=== PATIENT | female | born 1940 | race Caucasian/White ===

== ENCOUNTER → 2016-12-24 | Outpatient (CLI) | payer MEDICARE, OTHER | LOC: RAD 11:48 | PROVIDERS: ATTEND Internal Medicine Medical Oncology | DX: R51 Headache (principal) | CPT/HCPCS: 70553; A9577 ==

== ENCOUNTER → 2017-02-27 | Outpatient (CLI) | payer MEDICARE, OTHER | LOC: RAD 09:19 | PROVIDERS: ATTEND Internal Medicine Medical Oncology | DX: R06.02 Shortness of breath (principal) | CPT/HCPCS: 78472; A9560; Q9969 ==

== ENCOUNTER → 2017-05-02 | Outpatient (CLI) | payer MEDICARE, OTHER ==
--- NOTE | 2017-05-05 09:02 | RADIOLOGY REPORT (SQ) ---
EXAM DESCRIPTION: PET CT SKULL/THIGH COMPLETED DATE/TIME: 05/02/2017 1:53 pm REASON FOR STUDY: BREAST CA C50.919 MALIGNANT NEOPLASM OF UNSP SITE OF UNSPECIFIED FEMAL COMPARISON: 09/29/2016, 04/28/2016, and 06/25/2015. RADIONUCLIDE AND DOSE: 12.0 mCi F18 FDG The route of agent administration: Intravenous FASTING BLOOD SUGAR: 90 mg/dl CONTRAST TYPE AND DOSE: No CT contrast given. TECHNIQUE: Blood glucose level was verified. Above dose of FDG was injected intravenously. 2-D seg mented attenuation correction images were obtained from the base of the skull to the midthighs. Nonc ontrast CT images were obtained for attenuation correction and fusion with emission images. CT image s were performed without oral or intravenous contrast and are not sensitive for parenchymal lesions. A series of overlapping emission PET images were obtained. Images reviewed and manipulated at [facility] work station by the radiologist. Images stored on PACS. LIMITATIONS: None. FINDINGS: HEAD AND NECK: Again seen is a hypermetabolic nodule in the posterior right lobe of the th yroid. Mean SUV value 6.99. No other areas of abnormal metabolic activity in the soft tissues of th e head and neck. CHEST: No areas of abnormal metabolic activity in the chest. ABDOMEN AND PELVIS: No areas of abnormal metabolic activity in the abdomen or pelvis. Expected physi ologic activity is present in the genitourinary system and bowel. PROXIMAL LOWER EXTREMITIES: No areas of abnormal metabolic activity in the soft tissues of the lower extremities. BONES: Activity in the left maxilla (mean SUV value 4.11) and left mandible (mean SUV 3.85). These a re probably related to dental disease. Lesion in the left 6 rib (mean SUV 2.97). Sclerotic lesion i n the T11 vertebra (mean SUV 4.18). Sclerotic lesion in the left acetabular region (mean SUV value 3 .28 and 4.36). ADDITIONAL CT FINDINGS: Calcified hilar and subcarinal lymph nodes. Hiatal hernia. Calcified granul omas in the spleen. Surgical changes in the liver. Colonic diverticulosis. OTHER: No other significant findings. IMPRESSION: 1. BONY LESIONS DESCRIBED, ESSENTIALLY UNCHANGED COMPARED TO APRIL 2016. NO NEW LESIONS. 2. HYPERMETABOLIC NODULE IN THE RIGHT LOBE OF THE THYROID, UNCHANGED. 3. NO OTHER ABNORMAL SOFT TISSUE FINDINGS ON PET IMAGING. STABLE CT FINDINGS. TECHNICAL DOCUMENTATION: JOB ID: [id number] [employer]- All Rights Reserved
== END ==
LOC: RAD 08:50
PROVIDERS: ATTEND Internal Medicine Medical Oncology
DX: C83.39 Diffuse large B-cell lymphoma, extranodal and solid organ sites (principal); C50.919 Malignant neoplasm of unspecified site of unspecified female breast
CPT/HCPCS: 78815; A9552

== ENCOUNTER → 2017-05-07 | Outpatient (CLI) | payer MEDICARE, OTHER ==
--- NOTE | 2017-05-07 15:18 | RADIOLOGY REPORT (SQ) ---
EXAM DESCRIPTION: NM MUGA REST COMPLETED DATE/TIME: 05/07/2017 2:18 pm REASON FOR STUDY: CARDIOMYOPATHY DUE TO DRUG AND EXTERNAL AGENT;DETENTION USE I42.7 CARDIOMYOPATHY DUE TO DRUG AND EXTERNAL AGENT COMPARISON: 02/27/2017 RADIONUCLIDE AND DOSE: 26.8 mCi Tc 99m tagged red blood cells The route of agent administration: Intravenous TECHNIQUE: Following administration of the radionuclide, gated images of the heart are obtained in t hree projections. Left ventricular functional analysis performed. LIMITATIONS: None. FINDINGS: LEFT VENTRICULAR FUNCTION: EJECTION FRACTION: 68%. END-DIASTOLIC VOLUME: 55 mL. END-SYSTOLIC VOLUME: 13 mL. WALL MOTION: No focal wall motion abnormalities. OTHER: No other significant finding. IMPRESSION: NORMAL CARDIAC MUGA STUDY. NORMAL LEFT VENTRICULAR FUNCTION WITH VALUES ABOVE. TECHNICAL DOCUMENTATION: JOB ID: [id number] [employer]- All Rights Reserved
== END ==
LOC: RAD 10:50
PROVIDERS: ATTEND Internal Medicine Medical Oncology
DX: I42.7 Cardiomyopathy due to drug and external agent (principal)
CPT/HCPCS: 78472; A9560; Q9969

== ENCOUNTER 2017-07-04 08:23 | Day surgery (SDC) | payer MEDICARE, OTHER ==
--- NOTE | 2017-07-01 12:35 | HISTORY AND PHYSICAL E ---
History and Physical NAME: MIN MCFARLAND : 1940 AGE: 76Y ADMITTED: 07/04/2017 ROOM: CHIEF COMPLAINT: Patient presented for colon screening. HISTORY OF PRESENT ILLNESS: Patient was seen by Deyanira Almeida Dr. regarding esophageal hernia with dysphagia, odynophagia. They recommended surgical repair. The patient has cholecystectomy, hysterectomy, heart disease status post angioplasty. The patient presented for old colonoscopy. SURGICAL HISTORY: She does have: 1. Appendicitis, appendectomy at 55. 2. Cholecystectomy. ALLERGIES: No known allergies. MEDICATIONS: Crestor. SOCIAL HISTORY: Retired. She is nonsmoker. She does not drink. FAMILY HISTORY: Mom passed at the age of 83. She had an MT. REVIEW OF SYSTEMS: Dysphagia, abdominal pain, reflux, bloating, diarrhea, hemorrhoid, chest pain. At this time patient for colonoscopy. The patient was seen by Dr. Nils Humphreys. She underwent uneventful laparoscopy, hiatus hernia repair with Francisco Javier fundoplication. The patient did have paraesophageal hernia, as mentioned, underwent surgery. She did have colonoscopy 2006 showing nonspecific colitis and sigmoid diverticulosis. The patient did have colonoscopy 2006 shows as follows: Hemorrhoids, few erosions, erythema rectosigmoid, descending colon diverticulosis. Biopsy came back negative except acute inflammation. PAST MEDICAL HISTORY: 1. History of high cholesterol. 2. Hypertension. PHYSICAL EXAMINATION: VITAL SIGNS: Blood pressure 120/70, pulse 80, respirations 18, temp is 98. HEENT: Normal. ABDOMEN: Soft. NEUROLOGIC: Negative. MEDICATIONS: 1. Ambien. 2. Oxycodone. 3. Trental. 4. . CONCLUSION: Constipation, hemorrhoids, lower abdominal pain. PLAN: Colonoscopy. DICTATING PHYSICIAN: EUSEBIA DON M.D. [id number] PHY#: [id number] ID: [id number] JOB#: [id number] ACCT: [id number] cc:EUSEBIA DON M.D. >
[~2017-07-04 08:23] MED LIST: EPINEPHRINE INJ 1 MG/10 ML DISP.SYRIN ONE; FENTANYL CITRATE INJ/PF 100 MCG/2 ML AMPUL ONE; FLUMAZENIL INJ 0.5 MG/5 ML VIAL IV ONE; GLUCAGON,HUMAN RECOMB 1 MG INJ ONE; GLYCOPYRROLATE INJ 0.4 MG/2 ML VIAL ONE; LIDOCAINE 2% JELLY 30 ML TUBE ONE; NALOXONE HCL INJ/PF 0.4 MG/1 ML SDV ONE; ONDANSETRON HCL INJ/PF 4 MG/2 ML SDV ONE
[2017-07-04] MEDS: MIDAZOLAM 2 MG/2 ML INJ ONE ×2 (09:22→09:28)
[2017-07-04 10:45] LABS: ABSOLUTE EOSINOPHILS # (AUTO) 0.1 10^3/uL (0.0-0.6); ABSOLUTE LYMPHOCYTES (AUTO) 0.9 10^3/uL (0.5-4.7); ABSOLUTE MONOCYTES (AUTO) 0.5 10^3/uL (0.1-1.4); ABSOLUTE NEUT (AUTO) 5.5 10^3/uL (1.7-8.2); BASOPHILS % (AUTO) 0.4 % (0-2); EOSINOPHILS % (AUTO) 1.4 % (0-6); HEMATOCRIT 36.4 % (36.0-47.0); HEMOGLOBIN 12.1 g/dL (12.0-15.5); HGB HCT DIFFERENCE -0.1; LYMPHOCYTES % (AUTO) 12.4 % (13-45); MEAN CORPUSCULAR HEMOGLOBIN 29.5 pg (27.0-33.4); MEAN CORPUSCULAR HGB CONC 33.1 g/dL (32.0-36.0); MEAN CORPUSCULAR VOLUME 89 fl (80-97); RED BLOOD COUNT 4.09 10^6/uL (3.72-5.28); RED CELL DISTRIBUTION WIDTH 15.8 % (11.5-14.0); SEGMENTED NEUTROPHILS % (AUTO) 78.8 % (42-78)
[2017-07-04 10:50] VITALS: BP 152/63
[2017-07-04 11:35] LABS: ERYTHROCYTE SEDIMENTATION RATE 40 mm/hr (0-30)
--- NOTE | 2017-07-04 12:58 | DISCHARGE SUMMARY E ---
Discharge Summary NAME: MIN MCFARLAND : 1940 AGE: 76Y ADMITTED: 07/04/2017 DISCHARGED: 07/04/2017 PROCEDURE: Colonoscopy. HOSPITAL COURSE: The patient is 76, underwent colon screening today that shows no evidence of polyps, no bleeding. Sigmoid descending colon diverticulosis. She does have a history of breast cancer, history of asthma, coronary artery bypass 5 years ago, hysterectomy, appendectomy, colectomy, paraesophageal hernia repair. DISCHARGE PLAN: Baseline CBC. Soft, low-residue diet for 5 days. Hold aspirin, nonsteroidal 5 days. DICTATING PHYSICIAN: EUSEBIA DON M.D. [id number] PHY#: [id number] ID: [id number] JOB#: [id number] ACCT: [id number] cc:EUSEBIA DON M.D. >
--- NOTE | 2017-07-04 13:05 | OPERATIVE REPORT E ---
Operative Report NAME: MIN MCFARLAND : 1940 AGE: 76Y DATE OF SURGERY: 07/04/2017 ROOM: PREOPERATIVE DIAGNOSES: 1. Lower abdominal pain. 2. History of diverticulosis. 3. History of nonspecific colitis. 4. Preop colon screening. POSTOPERATIVE DIAGNOSES: Sigmoid descending colon diverticulosis. Nonspecific mild colitis in the sigmoid colon, most likely diverticulosis. No evidence of polyps. No bleeding. No malignancy. PROCEDURE: Colonoscopy to the cecum. Prep was adequate. SURGEON: EUSEBIA DON M.D. ANESTHESIA: Versed 2 and fentanyl 50. PROCEDURE: Rectal exam normal. Sigmoid diverticulosis, severe with nonspecific erosions in the sigmoid consistent with mild colitis. Descending colon diverticulosis. Transverse colon normal. Ascending colon normal. Cecum normal. Scope withdrawn cecum, ascending, transverse, descending, sigmoid, all the way to the rectum. CONCLUSION: Sigmoid descending colon diverticulosis, moderate to severe. No polyps. Mild colitis in the sigmoid colon. No bleeding. No malignancy. Patient tolerated the procedure well and discharged to her room in stable condition. PLAN: Consider followup colonoscopy 10 years if clinically indicated at that time. DICTATING PHYSICIAN: EUSEBIA DON M.D. [id number] [facility]#: [id number] ID: [id number] JOB#: [id number] ACCT: [id number] cc:PRO VERA M.D., MAHMOUD M.D. >
== END 2017-07-04 10:50 | disposition home or self-care (01) ==
LOC: END 08:23
PROVIDERS: ATTEND Specialist
PROC: 0DJD8ZZ Inspection of Lower Intestinal Tract, Via Natural or Artificial Opening Endoscopic (ICD-10-PCS; principal; 2017-07-04 09:00)
DX: K57.30 Diverticulosis of large intestine without perforation or abscess without bleeding (principal); K52.9 Noninfective gastroenteritis and colitis, unspecified; J45.909 Unspecified asthma, uncomplicated; I25.10 Atherosclerotic heart disease of native coronary artery without angina pectoris; E78.5 Hyperlipidemia, unspecified; I10 Essential (primary) hypertension; Z95.1 Presence of aortocoronary bypass graft; Z79.899 Other long term (current) drug therapy
CPT/HCPCS: 45378; 36415; 85025; 85652; 86140; J2250; J3010; J1610; J2405; J0171; J2310; J3490

== ENCOUNTER → 2017-10-06 | Outpatient (CLI) | payer MEDICARE, OTHER ==
--- NOTE | 2017-10-06 13:14 | RADIOLOGY REPORT (SQ) ---
EXAM DESCRIPTION: NM MUGA REST COMPLETED DATE/TIME: 10/06/2017 12:42 pm REASON FOR STUDY: CARDIOMYOPATHY DUE TO DRUG AND EXTERNAL AGENT (I42.7) I42.7 CARDIOMYOPATHY DUE TO DRUG AND EXTERNAL AGENT COMPARISON: 05/07/2017 RADIONUCLIDE AND DOSE: 25.3 mCi technetium 99 pertechnetate labeled red cells intravenous. The route of agent administration: Intravenous TECHNIQUE: Following administration of the radionuclide, gated images of the heart are obtained in t hree projections. Left ventricular functional analysis performed. LIMITATIONS: None. FINDINGS: LEFT VENTRICULAR FUNCTION: EJECTION FRACTION: 68%. WALL MOTION: No focal wall motion abnormalities. OTHER: No other significant finding. IMPRESSION: NORMAL CARDIAC MUGA. TECHNICAL DOCUMENTATION: JOB ID: [id number] [employer]- All Rights Reserved
== END ==
LOC: RAD 10:43
PROVIDERS: ATTEND Internal Medicine Medical Oncology
DX: I42.7 Cardiomyopathy due to drug and external agent (principal); T45.1X5A Adverse effect of antineoplastic and immunosuppressive drugs, initial encounter
CPT/HCPCS: 78472; A9560; Q9969

== ENCOUNTER → 2017-10-10 | Outpatient (CLI) | payer MEDICARE, OTHER ==
--- NOTE | 2017-10-10 16:04 | RADIOLOGY REPORT (SQ) ---
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 The route of agent administration: Intravenous. ADDITIONAL DRUGS AND DOSES: None. TECHNIQUE: Routine delayed images at 3 hours post radionuclide injection acquired of the bony skelet on including anterior and posterior whole-body projections and additional focused images as needed. LIMITATIONS: None. FINDINGS: BONES: There is increased uptake the proximal left 6th rib, right sternoclavicular joint, T12 vertebral body, the left acetabulum. There is mild increased uptake in the left sacroiliac joint . There is uptake left maxilla that was present previously. There is new uptake left occipital bone . KIDNEYS: Symmetric excretion without obstruction. OTHER: No other significant finding. IMPRESSION: There are stable areas of uptake as described above. There is new uptake in the occipit al bone on the left. COMMENT: Quality measure 147: Current bone scan is compared with any available plain radiographs, p rior bone scans, and CT/MRI. TECHNICAL DOCUMENTATION: JOB ID: [id number] [employer]- All Rights Reserved
== END ==
LOC: RAD 10:58
PROVIDERS: ATTEND Internal Medicine Medical Oncology
DX: C83.89 Other non-follicular lymphoma, extranodal and solid organ sites (principal); C50.919 Malignant neoplasm of unspecified site of unspecified female breast; C79.51 Secondary malignant neoplasm of bone
CPT/HCPCS: 78306; A9561; Q9969

== ENCOUNTER → 2017-10-19 | Outpatient (CLI) | payer MEDICARE, OTHER ==
--- NOTE | 2017-10-20 09:30 | RADIOLOGY REPORT (SQ) ---
EXAM DESCRIPTION: PET CT SKULL/THIGH COMPLETED DATE/TIME: 10/19/2017 7:11 pm REASON FOR STUDY: LYMPHOMA,BREAST CANCER, BONE CANCER C83.89 OTH NON-FOLLIC LYMPHOMA, EXTRANODAL AN D SOLID ORGAN S COMPARISON: PET-CT 05/02/2017, 09/29/2016, 07/21/2016, 10/13/2015, 06/25/2015 Bone scan 10/10/2017, 04/09/2016 RADIONUCLIDE AND DOSE: 11.5 mCi F18 FDG The route of agent administration: Intravenous FASTING BLOOD SUGAR: 75 mg/dl CONTRAST TYPE AND DOSE: No CT contrast given. TECHNIQUE: Blood glucose level was verified. Above dose of FDG was injected intravenously. 2-D seg mented attenuation correction images were obtained from the base of the skull to the midthighs. Nonc ontrast CT images were obtained for attenuation correction and fusion with emission images. CT image s were performed without oral or intravenous contrast and are not sensitive for parenchymal lesions. A series of overlapping emission PET images were obtained. Images reviewed and manipulated at [facility] work station by the radiologist. Images stored on PACS. LIMITATIONS: None. FINDINGS: HEAD AND NECK: In the posterior right lobe thyroid, a stable hypermetabolic nodule is pres ent with SUV 8.1. CHEST: No areas of abnormal metabolic activity in the chest. No hypermetabolic adenopathy or chest w all activity. ABDOMEN AND PELVIS: No areas of abnormal metabolic activity in the abdomen or pelvis. Expected physi ologic activity is present in the genitourinary system and bowel. PROXIMAL LOWER EXTREMITIES: No areas of abnormal metabolic activity in the soft tissues of the lower extremities. BONES: There is a new right T7 vertebral body subcentimeter hypermetabolic lesion with SUV 3.4. Other bony metastatic hypermetabolic lesions are as follows: Left posterior 6th rib SUV 3.3 (was SUV 3 on 05/02/2017). T11 vertebral body SUV 5 (was SUV 4.2 on 05/02/2017). Left acetabular posterior roof SUV 3.9 (was 3.3 on 05/02/2017). Left ischium/posterior acetabulum SUV 3.3 (was 4.4 on 05/02/2017). Increased activity is seen in the left maxilla and left mandible, likely related to periodontal disea se. Left maxilla activity SUV 6.4 (was 4.1 on PET-CT 05/02/2017). Left mandible activity SUV 4.2 (was 3.9 on PET-CT 05/02/2017). ADDITIONAL CT FINDINGS: Extensive atherosclerotic arterial vascular calcification, at the carotid bif urcations, origin of the left common carotid artery, coronary arteries, abdominal aorta. Post cholec ystectomy, appendectomy and left mastectomy. Calcified hilar and subcarinal lymph nodes. Moderate s ize hiatal hernia. Calcified granulomas in the spleen. Surgical clips posterior right lobe liver. Colonic diverticuli without CT signs of acute diverticulitis OTHER: Liver background SUV 2.3. Blood pool background 2.0 SUV IMPRESSION: New right T7 vertebral body subcentimeter hypermetabolic lesion Other bony metastatic lesions are stable in size, and similar in metabolic activity as compared to 05/02/2017 TECHNICAL DOCUMENTATION: JOB ID: [id number] [employer]- All Rights Reserved
== END ==
LOC: RAD 14:30
PROVIDERS: ATTEND Internal Medicine Medical Oncology
DX: C83.89 Other non-follicular lymphoma, extranodal and solid organ sites (principal); C50.919 Malignant neoplasm of unspecified site of unspecified female breast; C79.51 Secondary malignant neoplasm of bone
CPT/HCPCS: 78815; A9552

== ENCOUNTER → 2017-12-19 | Outpatient (CLI) | payer MEDICARE, OTHER ==
--- NOTE | 2017-12-20 09:43 | RADIOLOGY REPORT (SQ) ---
EXAM DESCRIPTION: MRI HEAD COMBO COMPLETED DATE/TIME: 12/19/2017 9:46 pm REASON FOR STUDY: HEADACHE R51 HEADACHE COMPARISON: 2014. TECHNIQUE: Multiplanar imaging includes noncontrasted T1, T2, FLAIR, diffusion with ADC map and post gadolinium contrast T1 sequences. Images stored on PACS. CONTRAST TYPE AND DOSE: 10 mL Multihance. RENAL FUNCTION: GFR > 60. LIMITATIONS: None. FINDINGS: ANATOMY: No anomalies. Normal vascular flow voids. Pituitary fossa normal. CSF SPACES: Small dural-based enhancing masses along the posterior falx to the right of midline and a long the right lateral temporal lobe. Suspect small meningiomas. In retrospect, these look stable a lthough better demonstrated on today's study with higher resolution post-contrast images. CEREBRUM: Spotty multifocal FLAIR white matter hyperintensities, grossly stable. Suggestive of small vessel vasculopathy, likely microvascular ischemic disease. No enhancing parenchymal lesions. POSTERIOR FOSSA: No signal alteration. No hemorrhage. No edema, masses, or mass effect. Internal sathish tory canals, cerebellopontine angles, mastoids normal. No enhancing lesions. No abnormal enhancement post contrast. DIFFUSION IMAGING: Negative for acute or subacute infarction. ORBITS: No masses. Globes normal. PARANASAL SINUSES: No fluid levels. Mucosa normal. OTHER: No other significant finding. IMPRESSION: 1. Stable examination includes small nonprogressive probable meningiomas as outlined abo ve. Also, patchy mild multifocal small vessel disease. No suspicious lesions. No acute abnormality . EVIDENCE OF ACUTE STROKE: NO. TECHNICAL DOCUMENTATION: JOB ID: [id number] [employer]- All Rights Reserved
== END ==
LOC: RAD 19:30
PROVIDERS: ATTEND Internal Medicine Medical Oncology
DX: R51 Headache (principal); I67.89 Other cerebrovascular disease
CPT/HCPCS: 82565; 70553; A9577

== ENCOUNTER → 2018-03-15 | Outpatient (CLI) | payer MEDICARE, OTHER ==
--- NOTE | 2018-03-16 09:13 | RADIOLOGY REPORT (SQ) ---
EXAM DESCRIPTION: PET CT SKULL/THIGH COMPLETED DATE/TIME: 03/15/2018 6:05 pm REASON FOR STUDY: LYMPHOMA C83.89 OTH NON-FOLLIC LYMPHOMA, EXTRANODAL AND SOLID ORGAN S COMPARISON: 10/19/2017 RADIONUCLIDE AND DOSE: 10.3 mCi F18 FDG The route of agent administration: Intravenous FASTING BLOOD SUGAR: 96 mg/dl CONTRAST TYPE AND DOSE: No CT contrast given. TECHNIQUE: Blood glucose level was verified. Above dose of FDG was injected intravenously. 2-D seg mented attenuation correction images were obtained from the base of the skull to the midthighs. Nonc ontrast CT images were obtained for attenuation correction and fusion with emission images. CT image s were performed without oral or intravenous contrast and are not sensitive for parenchymal lesions. A series of overlapping emission PET images were obtained. Images reviewed and manipulated at [facility] work station by the radiologist. Images stored on PACS. LIMITATIONS: None. FINDINGS: HEAD AND NECK: Stable hypermetabolic nodule posterior right lobe measuring about 5.6 SUV. CHEST: No areas of abnormal metabolic activity in the chest. ABDOMEN AND PELVIS: No areas of abnormal metabolic activity in the abdomen or pelvis. Expected physi ologic activity is present in the genitourinary system and bowel. PROXIMAL LOWER EXTREMITIES: No areas of abnormal metabolic activity in the soft tissues of the lower extremities. BONES: Hypermetabolic lesion left mandible SUV 4.2, stable. Hypermetabolic lesion left maxilla 6.2 S UV, stable. Both lesions are likely sequela of periodontal disease. Additional hypermetabolic bone lesions: T11 measuring 2.6 SUV, previously 5 SUV. Sclerotic lesion left ilium measures 2.4 SUV, previously 3.9. No other significant uptake. ADDITIONAL CT FINDINGS: No other significant acute findings. OTHER: No other significant findings. IMPRESSION: Favorable response to therapy with decreased uptake within bone lesions. No new areas o f hypermetabolic activity. TECHNICAL DOCUMENTATION: JOB ID: [id number]- All Rights Reserved Reading location - IP/workstation name: [email or web address]
== END ==
LOC: RAD 15:15
PROVIDERS: ATTEND Internal Medicine Medical Oncology
DX: C83.89 Other non-follicular lymphoma, extranodal and solid organ sites (principal)
CPT/HCPCS: 78815; A9552

== ENCOUNTER → 2018-05-24 | Outpatient (CLI) | payer MEDICARE, OTHER ==
--- NOTE | 2018-05-25 08:18 | RADIOLOGY REPORT (SQ) ---
EXAM DESCRIPTION: PET CT SKULL/THIGH COMPLETED DATE/TIME: 05/24/2018 5:48 pm REASON FOR STUDY: LYMPHOMA C83.89 OTH NON-FOLLIC LYMPHOMA, EXTRANODAL AND SOLID ORGAN S COMPARISON: PET-CT 03/15/2018, 10/19/2017 RADIONUCLIDE AND DOSE: 10 mCi F18 FDG The route of agent administration: Intravenous FASTING BLOOD SUGAR: 102 mg/dl CONTRAST TYPE AND DOSE: No CT contrast given. TECHNIQUE: Blood glucose level was verified. Above dose of FDG was injected intravenously. 2-D seg mented attenuation correction images were obtained from the base of the skull to the midthighs. Nonc ontrast CT images were obtained for attenuation correction and fusion with emission images. CT image s were performed without oral or intravenous contrast and are not sensitive for parenchymal lesions. A series of overlapping emission PET images were obtained. Images reviewed and manipulated at [facility] work station by the radiologist. Images stored on PACS. LIMITATIONS: None. FINDINGS: HEAD AND NECK: Nodule in the deep aspect right lower pole thyroid is unchanged, 1.5 cm in size with SUV of 6.3. This is similar compared to previous exams. CHEST: Interval development of patchy left basilar airspace disease worrisome for pneumonia with SUV 3.4. No pleural effusion. No worrisome pulmonary nodules. ABDOMEN AND PELVIS: No areas of abnormal metabolic activity in the abdomen or pelvis. Expected physi ologic activity is present in the genitourinary system and bowel. PROXIMAL LOWER EXTREMITIES: No areas of abnormal metabolic activity in the soft tissues of the lower extremities. BONES: Diffuse sclerotic metastatic lesions are present throughout the spine, without increased metab olic activity. Left mandible and maxilla activity is less prominent than on previous studies, likely related to dental disease ADDITIONAL CT FINDINGS: Right-sided permanent central line tip superior vena cava. Large retrocardia c hiatal hernia. Post cholecystectomy. Calcified mediastinal and right hilar lymph nodes, coronary artery calcifications, mild cardiomegaly OTHER: Liver background SUV 2.7. Blood pool background SUV 1.8 IMPRESSION: Treatment response with non metabolic sclerotic bony metastatic lesions. Patchy left basilar airspace disease with metabolic activity worrisome for pneumonia. TECHNICAL DOCUMENTATION: JOB ID: [id number] [employer]- All Rights Reserved Reading location - IP/workstation name: [facility]
== END ==
LOC: RAD 15:15
PROVIDERS: ATTEND Internal Medicine Medical Oncology
DX: C83.89 Other non-follicular lymphoma, extranodal and solid organ sites (principal)
CPT/HCPCS: 78815; A9552

== ENCOUNTER → 2018-07-29 | Outpatient (CLI) | payer MEDICARE, OTHER ==
--- NOTE | 2018-07-29 15:18 | RADIOLOGY REPORT (SQ) ---
EXAM DESCRIPTION: CHEST PA/LATERAL COMPLETED DATE/TIME: 07/29/2018 2:28 pm REASON FOR STUDY: MALIGNANT NEOPLASM OF UNSP SITE OF UNSPECIFIED FEMALE BREAST COMPARISON: 09/29/2015 EXAM PARAMETERS: NUMBER OF VIEWS: two views TECHNIQUE: Digital Frontal and Lateral radiographic views of the chest acquired. RADIATION DOSE: NA LIMITATIONS: none FINDINGS: LUNGS AND PLEURA: Lungs are hyperexpanded. There is no infiltrate or effusion. There is no mass. MEDIASTINUM AND HILAR STRUCTURES: No masses or contour abnormalities. HEART AND VASCULAR STRUCTURES: Cardiomegaly. No pulmonary edema. BONES: No acute findings. HARDWARE: Sternotomy wires. PICC line on the right. OTHER: No other significant finding. IMPRESSION: Chronic lung changes. Cardiomegaly without CHF. TECHNICAL DOCUMENTATION: JOB ID: [id number] [employer]- All Rights Reserved Reading location - IP/workstation name: [email or web address]
== END ==
LOC: OD 14:11
PROVIDERS: ATTEND Internal Medicine Medical Oncology
DX: C50.919 Malignant neoplasm of unspecified site of unspecified female breast (principal)
CPT/HCPCS: 71046

== ENCOUNTER → 2018-09-27 | Outpatient (CLI) | payer MEDICARE, OTHER ==
--- NOTE | 2018-09-28 08:44 | RADIOLOGY REPORT (SQ) ---
EXAM DESCRIPTION: PET CT SKULL/THIGH COMPLETED DATE/TIME: 09/27/2018 8:06 pm REASON FOR STUDY: LYMPHOMA C83.89 OTH NON-FOLLIC LYMPHOMA, EXTRANODAL AND SOLID ORGAN S COMPARISON: 05/24/2018, 03/15/2018, and 10/19/2017. RADIONUCLIDE AND DOSE: 10 mCi F18 FDG The route of agent administration: Intravenous FASTING BLOOD SUGAR: 106 mg/dl CONTRAST TYPE AND DOSE: No CT contrast given. TECHNIQUE: Blood glucose level was verified. Above dose of FDG was injected intravenously. 2-D seg mented attenuation correction images were obtained from the base of the skull to the midthighs. Nonc ontrast CT images were obtained for attenuation correction and fusion with emission images. CT image s were performed without oral or intravenous contrast and are not sensitive for parenchymal lesions. A series of overlapping emission PET images were obtained. Images reviewed and manipulated at [facility] work station by the radiologist. Images stored on PACS. LIMITATIONS: None. FINDINGS: HEAD AND NECK: Again seen is a focal nodule posterior to the right lobe of the thyroid, me asuring 1.5 cm, with mean SUV 7.41. Prior value 6.3. CHEST: Interval development of a moderate right pleural effusion. Calcified lymph nodes. Calcified pleural plaques. No areas of abnormal metabolic activity in the chest. ABDOMEN AND PELVIS: No areas of abnormal metabolic activity in the abdomen or pelvis. Expected physi ologic activity is present in the genitourinary system and bowel. PROXIMAL LOWER EXTREMITIES: No areas of abnormal metabolic activity in the soft tissues of the lower extremities. BONES: Multiple sclerotic bony lesions. A few of these now demonstrate interval slight increase in a ctivity. Focal activity in the right pedicle of T7 with mean SUV 3.42. Dense sclerosis in the T11 v ertebra with a small focal area of activity, mean SUV 5.42. Sclerotic lesion in the left iliac crest with mean SUV 2.79. Sclerotic lesion in the posterior left acetabulum with mean SUV 3.45. ADDITIONAL CT FINDINGS: No additional significant findings on the noncontrast CT images. OTHER: No other significant findings. Background blood pool activity mean SUV 1.97. Background live r activity mean SUV 2.67. IMPRESSION: 1. NUMEROUS SCLEROTIC BONY LESIONS. A FEW OF THESE NOW DEMONSTRATE INCREASING ACTIVITY, CONCERNING F OR RECURRING METASTATIC INVOLVEMENT. 2. FOCAL HYPERMETABOLIC NODULE POSTERIOR TO THE RIGHT LOBE OF THE THYROID, UNCHANGED. 3. INTERVAL DEVELOPMENT OF A MODERATE RIGHT PLEURAL EFFUSION. TECHNICAL DOCUMENTATION: JOB ID: [id number] [employer]- All Rights Reserved Reading location - IP/workstation name: [email or web address]
== END ==
LOC: RAD 15:23
PROVIDERS: ATTEND Internal Medicine Medical Oncology
DX: C83.89 Other non-follicular lymphoma, extranodal and solid organ sites (principal)
CPT/HCPCS: 78815; A9552

== ENCOUNTER 2018-10-09 13:50 | Emergency (ER) | payer MEDICARE, OTHER ==
--- NOTE | 2018-10-09 15:00 | ER Document Report ---
ED Medical Screen (RME) - General Chief Complaint: Rectal Bleeding Stated Complaint: ABDOMINAL PAIN, BLOOD IN STOOL Time Seen by Provider: 10/09/18 14:58 Notes: 78-year-old female to the emergency department for evaluation of GI bleeding. States that she has not felt well. Recently started Eliquis. Had 4 bowel movements that were bloody. History of breast cancer with history of atrial fibrillation and recent cardioversion. History of pleural effusions. I have greeted and performed a rapid initial assessment of this patient. A comprehensive ED assessment and evaluation of the patient, analysis of test results and completion of the medical decision making process will be conducted by additional ED providers. TRAVEL OUTSIDE OF THE [place] IN LAST 30 DAYS: No - Related Data Allergies/Adverse Reactions: oxycodone HCl [From Tylox] Allergy (Severe, Verified 10/09/18 13:52) Tachycardia codeine [Codeine] Adverse Reaction (Intermediate, Verified 10/09/18 13:52) Vomiting Past Medical History - Past Medical History Cardiac Medical History: Reports: Hx Atrial Fibrillation, Hx Coronary Artery Disease - TRIPLE BYPASS, Hx Hypercholesterolemia, Hx Hypertension - MEDICATED, Hx Heart Murmur Denies: Hx Congestive Heart Failure, Hx Heart Attack, Hx Peripheral Vascular Disease, Hx Pulmonary Embolism Pulmonary Medical History: Reports: Hx Asthma - ALLERGY RELATED,LAST USED INHALER 2 YEARS, Hx Bronchitis, Hx Pneumonia, Hx Sleep Apnea Denies: Hx COPD, Hx Respiratory Failure, Hx Tuberculosis Neurological Medical History: Denies: Hx Cerebrovascular Accident, Hx Seizures Endocrine Medical History: Denies: Hx Graves' Disease, Hx Hyperthyroidism, Hx Hypothyroidism Renal/ Medical History: Denies: Hx End Stage Renal Disease, Hx Kidney Stones, Hx Ovarian Cysts, Hx Peritoneal Dialysis, Hx Pelvic Inflammatory Disease Malignancy Medical History: Reports: Hx Breast Cancer - Left, Hx Leukemia - questionable. Denies: Hx Cervical Cancer, Hx Lung Cancer, Hx Ovarian Cancer GI Medical History: Reports: Hx Gastroesophageal Reflux Disease - paraesophageal hernia. Denies: Hx Crohn's Disease, Hx Hepatitis, Hx Hiatal Hernia, Hx Irritable Bowel, Hx Liver Failure, Hx Pancreatitis, Hx Ulcer Musculoskeltal Medical History: Reports Hx Arthritis, Denies Hx Fibromyalgia, Denies Hx Multiple Sclerosis, Denies Hx Muscular Dystrophy Psychiatric Medical History: Denies: Hx Bipolar Disorder, Hx Dementia, Hx Depression, Hx Post Traumatic Stress Disorder, Hx Schizophrenia Traumatic Medical History: Reports: Hx Fractures - knee cap Infectious Medical History: Denies: Hx Hepatitis, Hx HIV Past Surgical History: Reports: Hx Appendectomy, Hx Cholecystectomy, Hx Coronary Artery Bypass Graft - Triple Bypass, Hx Hysterectomy, Hx Mastectomy - AVOID LEFT ARM, Hx Open Heart Surgery - ANGIOPLASTY,10 YEARS LATER CABG 2011, Hx Pancreatic Surgery - right shoulder, Hx Tubal Ligation. Denies: Hx Colostomy , Hx Pacemaker - Immunizations Hx Diphtheria, Pertussis, Tetanus Vaccination: No - Unsure Review of Systems - Review of Systems Notes: Review of systems positive for the following: GI bleed, weakness, diarrhea, abdominal discomfort Physical Exam - Vital signs Vitals: Temp Pulse Resp BP Pulse Ox 98.0 F 89 16 138/67 H 98 10/09/18 13:59 10/09/18 13:59 10/09/18 13:59 10/09/18 13:59 10/09/18 13:59 Course - Vital Signs Vital signs: Temp Pulse Resp BP Pulse Ox 98.0 F 89 16 138/67 H 98 10/09/18 13:59 10/09/18 13:59 10/09/18 13:59 10/09/18 13:59 10/09/18 13:59 Doctor's Discharge - Discharge Referrals: SIDRA SCRUGGS MD [Primary Care Provider] - Follow up as needed
[2018-10-09 15:47] LABS: APPEARANCE,URINE CLEAR; BILIRUBIN,URINE NEGATIVE (NEGATIVE); COLOR,URINE YELLOW; GLUCOSE, URINE NEGATIVE (NEGATIVE); KETONES,URINE NEGATIVE (NEGATIVE); LEUKOCYTE ESTERASE,URINE TRACE (NEGATIVE); NITRITE,URINE NEGATIVE (NEGATIVE); PROTEIN,URINE NEGATIVE (NEGATIVE); UROBILINOGEN,URINE NEGATIVE mg/dL (<2.0)
[2018-10-09 18:44] LABS: ABSOLUTE BASOPHILS # (AUTO) 0.1 10^3/uL (0.0-0.2); ABSOLUTE EOSINOPHILS # (AUTO) 0.1 10^3/uL (0.0-0.6); ABSOLUTE LYMPHOCYTES (AUTO) 1.9 10^3/uL (0.5-4.7); ABSOLUTE MONOCYTES (AUTO) 0.7 10^3/uL (0.1-1.4); ABSOLUTE NEUT (AUTO) 7.5 10^3/uL (1.7-8.2); BASOPHILS % (AUTO) 0.6 % (0-2); EOSINOPHILS % (AUTO) 1.2 % (0-6); HEMATOCRIT 29.8 % (36.0-47.0); HEMOGLOBIN 9.6 g/dL (12.0-15.5); LYMPHOCYTES % (AUTO) 18.8 % (13-45); MEAN CORPUSCULAR HEMOGLOBIN 25.3 pg (27.0-33.4); MEAN CORPUSCULAR HGB CONC 32.3 g/dL (32.0-36.0); MEAN CORPUSCULAR VOLUME 78 fl (80-97); MONOCYTES % (AUTO) 6.5 % (3-13); PLATELET COUNT 383 10^3/uL (150-450); RED BLOOD COUNT 3.81 10^6/uL (3.72-5.28); SEGMENTED NEUTROPHILS % (AUTO) 72.9 % (42-78); TOTAL CELLS COUNTED % (AUTO) 100 %; WHITE BLOOD COUNT 10.3 10^3/uL (4.0-10.5)
--- NOTE | 2018-10-09 18:49 | ER Document Report ---
ED General - General Chief Complaint: Rectal Bleeding Stated Complaint: ABDOMINAL PAIN, BLOOD IN STOOL Time Seen by Provider: 10/09/18 14:58 TRAVEL OUTSIDE OF THE [place] IN LAST 30 DAYS: No - HPI Patient complains to provider of: rectal bleeding Onset: Other - 78-year-old female presents for evaluation of 4 episodes of painless bright red blood per rectum which developed today. She is a history of cancer as well as atrial fibrillation for which she had a cardioversion and subsequently was started on Eliquis as well as metoprolol earlier this month. She denies any pain does note some abdominal gurgling and more noises than usual preceding her episode today has had a hemorrhoid in the past but is never had any other bleeding or issues that she knows of. Denies any trauma to the abdomen, denies any rectal pain, denies any other symptoms - Related Data Allergies/Adverse Reactions: oxycodone HCl [From Tylox] Allergy (Severe, Verified 10/09/18 13:52) Tachycardia codeine [Codeine] Adverse Reaction (Intermediate, Verified 10/09/18 13:52) Vomiting Past Medical History - General Information source: Patient, Relative - Social History Smoking Status: Never Smoker Family History: Reviewed & Not Pertinent Patient has suicidal ideation: No Patient has homicidal ideation: No - Past Medical History Cardiac Medical History: Reports: Hx Atrial Fibrillation, Hx Coronary Artery Disease - TRIPLE BYPASS, Hx Hypercholesterolemia, Hx Hypertension - MEDICATED, Hx Heart Murmur Denies: Hx Congestive Heart Failure, Hx Heart Attack, Hx Peripheral Vascular Disease, Hx Pulmonary Embolism Pulmonary Medical History: Reports: Hx Asthma - ALLERGY RELATED,LAST USED INHALER 2 YEARS, Hx Bronchitis, Hx Pneumonia, Hx Sleep Apnea Denies: Hx COPD, Hx Respiratory Failure, Hx Tuberculosis Neurological Medical History: Denies: Hx Cerebrovascular Accident, Hx Seizures Endocrine Medical History: Denies: Hx Graves' Disease, Hx Hyperthyroidism, Hx Hypothyroidism Renal/ Medical History: Denies: Hx End Stage Renal Disease, Hx Kidney Stones, Hx Ovarian Cysts, Hx Peritoneal Dialysis, Hx Pelvic Inflammatory Disease Malignancy Medical History: Reports: Hx Breast Cancer - Left, Hx Leukemia - questionable. Denies: Hx Cervical Cancer, Hx Lung Cancer, Hx Ovarian Cancer GI Medical History: Reports: Hx Gastroesophageal Reflux Disease - paraesophageal hernia. Denies: Hx Crohn's Disease, Hx Hepatitis, Hx Hiatal Hernia, Hx Irritable Bowel, Hx Liver Failure, Hx Pancreatitis, Hx Ulcer Musculoskeletal Medical History: Reports Hx Arthritis, Denies Hx Fibromyalgia, Denies Hx Multiple Sclerosis, Denies Hx Muscular Dystrophy Psychiatric Medical History: Denies: Hx Bipolar Disorder, Hx Dementia, Hx Depression, Hx Post Traumatic Stress Disorder, Hx Schizophrenia Traumatic Medical History: Reports: Hx Fractures - knee cap Infectious Medical History: Denies: Hx Hepatitis, Hx HIV Past Surgical History: Reports: Hx Appendectomy, Hx Cholecystectomy, Hx Coronary Artery Bypass Graft - Triple Bypass, Hx Hysterectomy, Hx Mastectomy - AVOID LEFT ARM, Hx Open Heart Surgery - ANGIOPLASTY,10 YEARS LATER CABG 2011, Hx Pancreatic Surgery - right shoulder, Hx Tubal Ligation. Denies: Hx Colostomy , Hx Pacemaker - Immunizations Hx Diphtheria, Pertussis, Tetanus Vaccination: No - Unsure Hx Pneumococcal Vaccination: 08/24/10 Review of Systems - Review of Systems -: Yes All other systems reviewed and negative Physical Exam - Vital signs Vitals: Temp Pulse Resp BP Pulse Ox 98.0 F 89 16 138/67 H 98 10/09/18 13:59 10/09/18 13:59 10/09/18 13:59 10/09/18 13:59 10/09/18 13:59 - General General appearance: Appears well In distress: None - HEENT Head: Normocephalic Eyes: Normal Conjunctiva: Normal Cornea: Normal Extraocular movements intact: Yes Eyelashes: Normal Pupils: PERRL - Respiratory Respiratory status: No respiratory distress Chest status: Nontender Breath sounds: Normal Chest palpation: Normal - Cardiovascular Rhythm: Regular Heart sounds: Normal auscultation Murmur: No - Abdominal Inspection: Normal Distension: No distension Tenderness: Nontender - Rectal Tenderness: No Stool: Bloody Hemorrhoids: None - Back Back: Normal - Extremities General upper extremity: Normal inspection, Nontender, Normal strength, Normal temperature General lower extremity: Normal inspection, Nontender, Normal strength, Normal temperature - Neurological Neuro grossly intact: Yes Cognition: Normal Orientation: AAOx4 Nya Coma Scale Eye Opening: Spontaneous Nya Coma Scale Verbal: Oriented Nya Coma Scale Motor: Obeys Commands Nya Coma Scale Total: 15 Speech: Normal Cranial nerves: Normal Cerebellar coordination: Normal Motor strength normal: LUE, RUE, LLE, RLE - Psychological Associated symptoms: Normal affect Course - Re-evaluation Re-evalutation: 10/10/18 01:25 This pleasant 78-year-old female presents for rectal bleeding which began today. She was recently started on Eliquis for atrial fibrillation and likely this is why she began to have rectal bleeding. She is never been told she has diverticulitis or diverticulosis though it is quite possible. On examination overall she appears well, has no actual complaints and has not had any episodes since earlier today. Labs have been drawn and EKG was obtained. Her EKG demonstrates similar depressions to previously consistent with her previous history of a CABG in the past, her CBC demonstrates a decrease in her hemoglobin from previous record here 1 year prior of 12 to today's value of 9 concerning for quite a decrease. Because she is still in sinus rhythm and having rectal bleeding at this time will contact [facility] as they have handled her cardiology care in some of her cancer care in the past and may be better equipped as we lack gastroenterology to further elucidate her rectal bleeding. Spoke to on-call hospitalist at [facility], he is able to relay that this patient's hemoglobin has been 9 for the last several months including a level of 9.2 in May as well as in February of this year. We spoke about the benefits and risks of stopping Eliquis at this point her chads vascular score is somewhere along the line of 3-4 %/year whereas she is currently bleeding per rectum as such she would benefit from stopping her Eliquis at this time. I spoke to this patient about potential further monitoring and management serial hemoglobins and admission she notes that she is comfortable with going home, I did funeral planning counselor her daughter and her about the importance of return in case of any worsening we have agreed that she will stop taking her Eliquis until Friday at which time she will call her union representative for further clarification on whether to reinitiate or not. At the time of discharge this patient was well-appearing, ambulatory without assistance, tolerating p.o. with a normal blood pressure as well as heart rate. - Vital Signs Vital signs: Temp Pulse Resp BP Pulse Ox 98 F 89 18 136/56 H 98 10/09/18 21:50 10/09/18 13:59 10/09/18 21:43 10/09/18 21:44 10/09/18 21:43 - Laboratory Result Diagrams: 10/09/18 18:17 10/09/18 18:17 Laboratory results interpreted by me: 10/09/18 10/09/18 10/09/18 15:20 18:17 18:17 Hgb 9.6 L Hct 29.8 L MCV 78 L MCH 25.3 L RDW 19.0 H PT 20.9 H APTT 41.9 H Est GFR (Non-Af Amer) Glucose Albumin Ur Leukocyte Esterase TRACE H 10/09/18 18:17 Hgb Hct MCV MCH RDW PT APTT Est GFR (Non-Af Amer) 56 L Glucose 111 H Albumin 3.4 L Ur Leukocyte Esterase Discharge - Discharge Clinical Impression: Rectal bleeding Atrial fibrillation Qualifiers: Atrial fibrillation type: paroxysmal Qualified Code(s): I48.0 - Paroxysmal atrial fibrillation Condition: Good Disposition: HOME, SELF-CARE Instructions: Rectal Bleeding, Unclear Cause ([facility]) Additional Instructions: You seen today in the emergency department for the blood from your bottom. You had evaluation including a physical exam and blood work. I believe that your rectal bleeding is because of your blood thinner. You should stop your Eliquis currently. Call your union representative on Friday about your Eliquis use. You need to return to the emergency room if you begin to have lightheadedness weakness chest pains or other symptoms. Referrals: SIDRA SCRUGGS MD [ACTIVE STAFF] - Follow up in 3-5 days
[2018-10-09 18:52] LABS: INTERNATIONAL RATION (INR) 1.71; PROTHROMBIN TIME 20.9 SEC (11.4-15.4)
[2018-10-09 18:53] LABS: PARTIAL THROMBOPLASTIN TIME 41.9 SEC (23.5-35.8)
[2018-10-09 19:09] LABS: ALANINE AMINOTRANSFERASE 12 U/L (9-52); ALBUMIN 3.4 g/dL (3.5-5.0); ALKALINE PHOSPHATASE 72 U/L (38-126); ANION GAP 11 (5-19); ASPARTATE AMINO TRANSFERASE 20 U/L (14-36); BILIRUBIN,DIRECT 0.3 mg/dL (0.0-0.4); BILIRUBIN,TOTAL 0.6 mg/dL (0.2-1.3); BLOOD UREA NITROGEN 14 mg/dL (7-20); CALCIUM 9.2 mg/dL (8.4-10.2); CARBON DIOXIDE 26 mmol/L (22-30); CHLORIDE 103 mmol/L (98-107); GLUCOSE 111 mg/dL (75-110); POTASSIUM 3.9 mmol/L (3.6-5.0); SODIUM 139.6 mmol/L (137-145); TOTAL PROTEIN 6.4 g/dL (6.3-8.2)
[2018-10-09] MEDS ORDERED: DIPHENHYDRAMINE HCL 50 MG/ML VIAL IV ONE (20:05)
[2018-10-09 21:50] VITALS: BP 136/56
--- NOTE | 2018-10-10 00:17 | EKG REPORT ---
SEVERITY:- ABNORMAL ECG - SINUS RHYTHM NONSPECIFIC T ABNORMALITIES, ANT-LAT LEADS : Confirmed by: Billie Shipley 10-Oct-2018 00:15:28
== END 2018-10-09 21:55 | disposition home or self-care (01) ==
LOC: ER 13:50
DX: K62.5 Hemorrhage of anus and rectum (principal); R19.8 Other specified symptoms and signs involving the digestive system and abdomen; I48.0 Paroxysmal atrial fibrillation; I25.10 Atherosclerotic heart disease of native coronary artery without angina pectoris; I10 Essential (primary) hypertension; J45.909 Unspecified asthma, uncomplicated; Z88.6 Allergy status to analgesic agent; Z85.3 Personal history of malignant neoplasm of breast; Z95.1 Presence of aortocoronary bypass graft
CPT/HCPCS: 93005; 99284; 96374; 96375; 36415; 85025; 85610; 85730; 80053; 81001; 93010; J1200

== ENCOUNTER 2018-10-20 11:57 | Outpatient (CLI) | payer MEDICARE, OTHER ==
[~2018-10-20 11:57] MED LIST changes: +ACETAMINOPHEN 325 MG TABLET PO PRN; +DIPHENHYDRAMINE HCL 25 MG CAPSULE PO PRN; -EPINEPHRINE INJ 1 MG/10 ML DISP.SYRIN ONE; -FENTANYL CITRATE INJ/PF 100 MCG/2 ML AMPUL ONE; -FLUMAZENIL INJ 0.5 MG/5 ML VIAL IV ONE; +FUROSEMIDE INJ/PF 20 MG/2 ML SDV IV PRN; -GLUCAGON,HUMAN RECOMB 1 MG INJ ONE; -GLYCOPYRROLATE INJ 0.4 MG/2 ML VIAL ONE; -LIDOCAINE 2% JELLY 30 ML TUBE ONE; -NALOXONE HCL INJ/PF 0.4 MG/1 ML SDV ONE; -ONDANSETRON HCL INJ/PF 4 MG/2 ML SDV ONE
[2018-10-20] MEDS ORDERED: NORMAL SALINE 250 ML IV PRN (12:57)
[2018-10-20 14:29] LABS: HEMATOCRIT 23.2 % (36.0-47.0); MEAN CORPUSCULAR HGB CONC 32.4 g/dL (32.0-36.0); MEAN CORPUSCULAR VOLUME 77 fl (80-97); PLATELET COUNT 454 10^3/uL (150-450); RED BLOOD COUNT 3.01 10^6/uL (3.72-5.28); RED CELL DISTRIBUTION WIDTH 18.9 % (11.5-14.0); WHITE BLOOD COUNT 8.2 10^3/uL (4.0-10.5)
[2018-10-20 14:31] LABS: HEMOGLOBIN 7.5 g/dL (12.0-15.5)
[2018-10-21] MEDS ORDERED: FUROSEMIDE INJ/PF 20 MG/2 ML SDV IV PRN (03:47)
[2018-10-21 04:12] LABS: HEMATOCRIT 32.4 % (36.0-47.0); MEAN CORPUSCULAR HEMOGLOBIN 26.1 pg (27.0-33.4); MEAN CORPUSCULAR HGB CONC 32.8 g/dL (32.0-36.0); MEAN CORPUSCULAR VOLUME 80 fl (80-97); PLATELET COUNT 439 10^3/uL (150-450); RED BLOOD COUNT 4.07 10^6/uL (3.72-5.28); RED CELL DISTRIBUTION WIDTH 19.2 % (11.5-14.0); WHITE BLOOD COUNT 7.9 10^3/uL (4.0-10.5)
[2018-10-21 04:15] LABS: HEMOGLOBIN 10.6 g/dL (12.0-15.5)
[2018-10-21 07:35] VITALS: BP 177/59
== END 2018-10-21 05:16 | disposition home or self-care (01) ==
LOC: II 11:57 → 2N 12:01 → II 10-21 05:16
PROVIDERS: ATTEND Internal Medicine Medical Oncology
PROC: 30243N1 Transfusion of Nonautologous Red Blood Cells into Central Vein, Percutaneous Approach (ICD-10-PCS; principal; 2018-10-20)
PROC: 3E043GC Introduction of Other Therapeutic Substance into Central Vein, Percutaneous Approach (ICD-10-PCS; 2018-10-20)
DX: K92.2 Gastrointestinal hemorrhage, unspecified (principal)
CPT/HCPCS: 86900; 86901; 36415; 36430; 86850; 85027; 86920; 96374; P9016; A9270 ×2; J1940; J7050

== ENCOUNTER → 2018-12-09 | Outpatient (CLI) | payer MEDICARE, OTHER ==
--- NOTE | 2018-12-09 18:17 | RADIOLOGY REPORT (SQ) ---
EXAM DESCRIPTION: NM WHOLE BODY BONE SCAN COMPLETED DATE/TIME: 12/09/2018 2:50 pm REASON FOR STUDY: BREAST CA (C50.919) C50.919 MALIGNANT NEOPLASM OF UNSP SITE OF UNSPECIFIED FEMAL COMPARISON: 10/10/2017 RADIONUCLIDE AND DOSE: 20 millicuries Tc99m HDP. The route of agent administration: Intravenous. ADDITIONAL DRUGS AND DOSES: None. TECHNIQUE: Routine delayed images at 3 hours post radionuclide injection acquired of the bony skelet on including anterior and posterior whole-body projections and additional focused images as needed. LIMITATIONS: None. FINDINGS: BONES: There is abnormal uptake in the right side of the manubrium sternum. There is abno rmal uptake in the mid sternum. There is abnormal uptake at what appears to be T11. There is abnorm al uptake in the left side of the pelvis. There is abnormal uptake in the left 4th rib. Uptake in t he calvarium seen on the earlier study is not seen. KIDNEYS: Symmetric excretion without obstruction. OTHER: No other significant finding. IMPRESSION: Metastatic disease to bone. The uptake previously seen in the calvarium is no longer ev ident. COMMENT: Quality measure 147: Current bone scan is compared with any available plain radiographs, p rior bone scans, and CT/MRI. TECHNICAL DOCUMENTATION: JOB ID: [id number] [employer]- All Rights Reserved Reading location - IP/workstation name: [email or web address]
== END ==
LOC: RAD 10:43
PROVIDERS: ATTEND Internal Medicine Medical Oncology
DX: C50.919 Malignant neoplasm of unspecified site of unspecified female breast (principal); C79.51 Secondary malignant neoplasm of bone
CPT/HCPCS: 78306; A9561; Q9969

== ENCOUNTER → 2019-02-02 | Outpatient (CLI) | payer MEDICARE, OTHER ==
--- NOTE | 2019-02-02 13:22 | RADIOLOGY REPORT (SQ) ---
EXAM DESCRIPTION: PELVIS AP COMPLETED DATE/TIME: 02/02/2019 12:50 pm REASON FOR STUDY: SECONDARY MALIGNANT NEOPLASM OF BONE C50.919 MALIGNANT NEOPLASM OF UNSP SITE OF U NSPECIFIED FEMAL C79.51 SECONDARY MALIGNANT NEOPLASM OF BONE COMPARISON: AP pelvis 07/31/2016 Whole-body bone scan 12/09/2018 PET-CT 10/07/2018 NUMBER OF VIEWS: One view TECHNIQUE: AP Pelvis LIMITATIONS: None. FINDINGS: MINERALIZATION: Asymmetric bony sclerosis of the left innominate bone in the region of the acetabulum. This correlates with bony sclerosis on PET-CT 09/27/2018, and mild increased uptake on b one scan 12/09/2018. This is compatible with bony metastatic disease from breast cancer, and is simil ar compared to plain films 07/31/2016. HIPS: No acute fracture or dislocation. No worrisome bone lesions. PELVIS AND SACRUM: No acute fracture or dislocation. No worrisome bone lesions. PUBIS AND ISCHIUM: No acute fracture. LOWER LUMBAR SPINE: High-grade disc space loss of height at L4-5 SOFT TISSUES: No findings. OTHER: No other significant finding. IMPRESSION: Stable bony sclerotic metastatic disease involving the left innominate bone acetabular r egion. This is similar by plain film compared to 07/31/2016 COMMENT: Pelvic fractures are often occult on plain radiographs. If strong clinical suspicion for f racture, recommend CT or MR. TECHNICAL DOCUMENTATION: JOB ID: [id number] [employer]- All Rights Reserved Reading location - IP/workstation name: [email or web address]
--- NOTE | 2019-02-02 13:28 | RADIOLOGY REPORT (SQ) ---
EXAM DESCRIPTION: LUMBAR SPINE COMPLETE COMPLETED DATE/TIME: 02/02/2019 12:50 pm REASON FOR STUDY: SECONDARY MALIGNANT NEOPLASM OF BONE C50.919 MALIGNANT NEOPLASM OF UNSP SITE OF U NSPECIFIED FEMAL C79.51 SECONDARY MALIGNANT NEOPLASM OF BONE COMPARISON: Plain films 07/31/2016 PET-CT 09/27/2018 Whole-body bone scan 12/09/2018 NUMBER OF VIEWS: Five views including obliques. TECHNIQUE: AP, lateral, oblique, and sacral radiographic images acquired of the lumbar spine. LIMITATIONS: None. FINDINGS: MINERALIZATION: Dense bony sclerosis of the T11 vertebral body correlates with bony metast atic disease on the prior exams, stable. SEGMENTATION: Normal. No transitional anatomy. ALIGNMENT: Normal. VERTEBRAE: Maintained height. No fracture or worrisome bone lesion. DISCS: High-grade disc space loss of height at L4-5 POSTERIOR ELEMENTS: Pedicles and facets are intact. No pars defect or posterior arch defects. HARDWARE: Clips right upper quadrant post cholecystectomy PARASPINAL SOFT TISSUES: Normal. PELVIS: Not in the field of view OTHER: No other significant finding. IMPRESSION: Stable T11 bony sclerosis from stable metastatic disease Advanced disc space loss of height at L4-5. TECHNICAL DOCUMENTATION: JOB ID: [id number] [employer]- All Rights Reserved Reading location - IP/workstation name: [email or web address]
== END ==
LOC: OD 12:24
PROVIDERS: ATTEND Internal Medicine Medical Oncology
DX: C50.919 Malignant neoplasm of unspecified site of unspecified female breast (principal); C79.51 Secondary malignant neoplasm of bone
CPT/HCPCS: 72110; 72170

== ENCOUNTER → 2019-02-14 | Outpatient (CLI) | payer MEDICARE, OTHER ==
--- NOTE | 2019-02-15 09:58 | RADIOLOGY REPORT (SQ) ---
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 RADIONUCLIDE AND DOSE: 10 mCi F18 FDG The route of agent administration: Intravenous FASTING BLOOD SUGAR: 105 mg/dl CONTRAST TYPE AND DOSE: No CT contrast given. TECHNIQUE: Blood glucose level was verified. Above dose of FDG was injected intravenously. 2-D seg mented attenuation correction images were obtained from the base of the skull to the midthighs. Nonc ontrast CT images were obtained for attenuation correction and fusion with emission images. CT image s were performed without oral or intravenous contrast and are not sensitive for parenchymal lesions. A series of overlapping emission PET images were obtained. Images reviewed and manipulated at [facility] work station by the radiologist. Images stored on PACS. LIMITATIONS: None. FINDINGS: HEAD AND NECK: Again seen is a nodule posterior to the right lobe of the thyroid, measurin g approximately 1.3 x 2.0 cm. Mean SUV 6.87. Prior value 7.41. CHEST: No areas of abnormal metabolic activity in the chest. ABDOMEN AND PELVIS: No areas of abnormal metabolic activity in the abdomen or pelvis. Expected physi ologic activity is present in the genitourinary system and bowel. PROXIMAL LOWER EXTREMITIES: No areas of abnormal metabolic activity in the soft tissues of the lower extremities. BONES: Again seen are numerous sclerotic lesions in the spine as well as the pelvis. Activity on the right side of the T7 vertebra has increased. Mean SUV 8.58 with prior value 3.42. Dense sclerosis in the T11 vertebra with mean SUV 4.4 and 4.07. Prior value 5.42. Sclerotic lesion in the T12 verte bra with mean SUV 5.14. Prior value 3.07. ADDITIONAL CT FINDINGS: Previously seen right pleural effusion has resolved. PICC line in the right upper extremity. Numerous calcified right hilar and subcarinal lymph nodes. Punctate calcified gran ulomas in the spleen. Sigmoid diverticulosis. OTHER: No other significant findings. Background blood pool activity mean SUV 1.5. Background liver activity mean SUV 2.19. . IMPRESSION: 1. SCLEROTIC LESIONS IN THE THORACIC SPINE WITH INCREASING ACTIVITY CONSISTENT WITH PROGRESSION OF DI SEASE. 2. STABLE HYPERMETABOLIC NODULE POSTERIOR TO THE RIGHT LOBE OF THE THYROID. 3. PREVIOUSLY SEEN RIGHT PLEURAL EFFUSION HAS RESOLVED. OTHER CHRONIC INCIDENTAL CT FINDINGS ABOV E. TECHNICAL DOCUMENTATION: JOB ID: [id number] [employer]- All Rights Reserved Reading location - IP/workstation name: [email or web address]
== END ==
LOC: RAD 18:13
PROVIDERS: ATTEND Internal Medicine Medical Oncology
DX: C83.89 Other non-follicular lymphoma, extranodal and solid organ sites (principal)
CPT/HCPCS: 78815; A9552